=== PATIENT | female | born 1970 | race Caucasian/White ===

== ENCOUNTER 2022-09-10 08:12 | Day surgery (SDC) | payer OTHER ==
[2022-09-08 14:03] VITALS: BMI 29.5
[2022-09-10 09:53] VITALS: RESP 20
[2022-09-10 10:25] VITALS: BP 104/67; PULSE 67; TEMP 97.1
== END 2022-09-10 10:20 | disposition home or self-care (01) ==
LOC: FASU-ENDO 08:12
PROVIDERS: ATTEND Internal Medicine Gastroenterology
PROC: 0DJD8ZZ Inspection of Lower Intestinal Tract, Via Natural or Artificial Opening Endoscopic (ICD-10-PCS; principal; 2022-09-10 09:28)
DX: Z12.11 Encounter for screening for malignant neoplasm of colon (principal); K57.30 Diverticulosis of large intestine without perforation or abscess without bleeding